=== PATIENT | male | born 1985 | race Two or more races ===

== ENCOUNTER 2019-11-07 16:06 | Emergency (ER) | payer OTHER ==
[2019-11-07] MEDS ORDERED: Bacitracin Oint 1 GM U/D Packet TOP ONE (16:21)
[2019-11-07] MEDS ORDERED: Lidocaine 1% PF 2 ML SDV INJECT ONE (16:21)
[2019-11-07] MEDS ORDERED: Diphtheria,Pertussis(Acell),Tetanus Vaccine 0.5 ML Syringe IM ONE (16:21)
--- NOTE | 2019-11-07 16:21 | EDM.PDOC ---
ED HPI GENERAL MEDICAL PROBLEM - General Chief Complaint: Upper Extremity Injury/Pain Stated Complaint: INJURED R HAND WHILE AT WORK Time Seen by Provider: 11/07/19 16:22 Source of Information: Reports: Patient History Limitations: Reports: No Limitations - History of Present Illness INITIAL COMMENTS - FREE TEXT/NARRATIVE: HISTORY AND PHYSICAL: History of present illness: Patient is a 34-year-old male who presents to the emergency room with complaints of right middle finger crush injury. He states while at work is finger got crushed by a piece of equipment and had noticed the tip of his bone sticking out through the laceration. He denies any other extremity involvement. Bleeding is controlled with gentle pressure. Unsure of his last tetanus update Review of systems: As per history of present illness and below otherwise all systems reviewed and negative. Past medical history: As per history of present illness and as reviewed below otherwise noncontributory. Surgical history: As per history of present illness and as reviewed below otherwise noncontributory. Social history: See social history for further information Family history: As per history of present illness and as reviewed below otherwise noncontributory. Physical exam: General: Well-developed and well-nourished 34-year-old male. Alert and oriented. Nontoxic-appearing and in no acute distress. HEENT: Atraumatic, normocephalic, pupils equal and reactive bilaterally, negative for conjunctival pallor or scleral icterus, mucous membranes moist, TMs normal bilaterally, throat clear, neck supple, nontender, trachea midline. No drooling or trismus noted. No meningeal signs. No hot potato voice noted. Lungs: Clear to auscultation, breath sounds equal bilaterally, chest nontender. Heart: S1S2, regular rate and rhythm without overt murmur Abdomen: Soft, nondistended, nontender. Negative for masses or hepatosplenomegaly. Negative for costovertebral tenderness. Skin: 2.5 cm to the anterior aspect of the distal right third digit just below the nailbed, soft tissue swelling, open fracture. Otherwise skin is intact, warm, dry. No lesions or rashes noted. Extremities: Crush injury with open laceration to the right distal third digit. See skin for details. Moves all extremities per self without difficulty or deficits, negative for cords or calf pain. Neurovascular unremarkable. Neuro: Awake, alert, oriented. Cranial nerves II through XII unremarkable. Cerebellum unremarkable. Motor and sensory unremarkable throughout. Exam nonfocal. Notes: 1% lidocaine was used to anesthetize the area. Area was thoroughly cleansed with chlorhexidine and wound wash was used to thoroughly irrigate the site. X- ray shows a distal phalanx with minimal displacement of the affected digit. Usual and customary procedures were followed for suture placement. 4-0 Chromic , #4 interrupted sutures placed without difficulty. Bacitracin nonstick bulky dressing was applied. Consulted Dr Byrne, Hand Surgeon at [facility]. He is aware of the patient and type of injury. He states the patient can call his office on Sunday and he would see him Sunday or Sunday in his office. All findings were shared with the patient. Medication, wound care and supportive care measures were reviewed and discussed. Voices understanding and is agreeable to plan of care. Denies any further questions or concerns at this time. Diagnostics: X-ray Therapeutics: 1% lidocaine, wound care/irrigation Prescription: Tran [place] Impression: Phalanx Fracture Plan: 1. You will need to follow up with Dr Byrne, Hand Surgeon at [facility]. He is aware of your case and would like to see you in his office on Sunday or Sunday. Call his office first thing in the morning to set up your appointment time. 2. Keep the skin, clean and dry. 3. Take the antibiotic as directed. Tylenol and/or ibuprofen as needed for pain management. [place] for moderate to severe pain. This medication may cause drowsiness so do not take it while driving or needing to be functioning outside of the house. 4. Return to the ED as needed and as discussed. Definitive disposition and diagnosis as appropriate pending reevaluation and review of above. Right Middle Finger Pain Score (Numeric/FACES): 5 - Related Data Allergies Allergy/AdvReac Type Severity Reaction Status Date / Time No Known Allergies Allergy Verified 11/07/19 16:27 Home Meds: Home Meds Acetaminophen/HYDROcodone [[place] 325-5 MG] 1 dose PO Q4H PRN #30 tablet [Rx] cephALEXin [Keflex] 500 mg PO TID 7 Days #21 cap 11/07/19 [Rx] Review of Systems - Review of Systems Review Of Systems: Comprehensive ROS is negative, except as noted in HPI. ED EXAM, GENERAL - Physical Exam Exam: See Below (See dictation) Course - Vital Signs Last Recorded V/S: Last Vital Signs Temp 98.4 F 11/07/19 16:27 Pulse 90 11/07/19 16:27 Resp 18 11/07/19 16:27 BP 157/97 H 11/07/19 16:27 Pulse Ox 97 11/07/19 16:27 - Orders/Labs/Meds Orders: Active Orders 24 hr Category Date Time Status Vaccines to be Administered [RC] PER UNIT ROUTINE Care 11/07/19 16:22 Active Meds: Medications Discontinued Medications Generic Name Dose Route Start Last Admin Trade Name Freq PRN Reason Stop Dose Admin Hydrocodone Bitart/Acetaminophen 1 tab 11/07/19 16:39 [place] 325-5 Mg PO 11/07/19 16:40 ONETIME ONE Bacitracin 1 dose 11/07/19 16:21 Bacitracin Oint 1 Gm TOP 11/07/19 16:22 ONETIME ONE Cefazolin Sodium 1 gm 11/07/19 16:39 Ancef IM 11/07/19 16:40 ONETIME ONE Diphtheria/Tetanus/Acell Pertussis 0.5 ml 11/07/19 16:21 Adacel IM 11/07/19 16:22 .ONCE ONE Sterile Water Confirm 11/07/19 17:27 Sterile Water For Injection Administered 11/07/19 17:28 Dose 20 mls @ as directed .ROUTE .STK-MED ONE Lidocaine HCl 4 ml 11/07/19 16:21 Xylocaine-Mpf 1% INJECT 11/07/19 16:22 ONETIME ONE Lidocaine HCl Confirm 11/07/19 16:24 Xylocaine-Mpf 1% Administered 11/07/19 16:25 Dose 5 ml .ROUTE .STK-MED ONE Departure - Departure Time of Disposition: 17:27 Disposition: Home, Self-Care 01 Clinical Impression: Phalanx, distal fracture of finger Qualifiers: Encounter type: initial encounter Finger: middle finger Fracture type: open Fracture alignment: displaced Laterality: right Qualified Code(s): S62.632B - Displaced fracture of distal phalanx of right middle finger, initial encounter for open fracture - Discharge Information Prescriptions: Acetaminophen/HYDROcodone [[place] 325-5 MG] 1 dose PO Q4H PRN #30 tablet PRN Reason: Pain cephALEXin [Keflex] 500 mg PO TID 7 Days #21 cap Instructions: Finger Fracture, Adult, [id number] Referrals: PCP,None [Primary Care Provider] - Forms: ED Department Discharge Additional Instructions: The following information is given to patients seen in the emergency department who are being discharged to home. This information is to outline your options for follow-up care. We provide all patients seen in our emergency department with a follow-up referral. The need for follow-up, as well as the timing and circumstances, are variable depending upon the specifics of your emergency department visit. If you don't have a primary care physician on staff, we will provide you with a referral. We always advise you to contact your personal physician following an emergency department visit to inform them of the circumstance of the visit and for follow-up with them and/or the need for any referrals to a consulting specialist. The emergency department will also refer you to a specialist when appropriate. This referral assures that you have the opportunity for follow-up care with a specialist. All of these measure are taken in an effort to provide you with optimal care, which includes your follow-up. Under all circumstances we always encourage you to contact your private physician who remains a resource for coordinating your care. When calling for follow-up care, please make the office aware that this follow-up is from your recent emergency room visit. If for any reason you are refused follow-up, please contact the [facility] Emergency Department at and asked to speak to the emergency department charge nurse. Dr Byrne [facility]: Hand Surgeon [address] [place] [address] ([address]rd Floor) [facility] [id number] 1. You will need to follow up with Dr Byrne, Hand Surgeon at [facility] in [place]. He is aware of your case and would like to see you in his office on Sunday or Sunday. Call his office first thing Sunday morning to set up your appointment time. 2. Keep the skin, clean and dry. Keep this dressing on. 3. Take the antibiotic as directed. Tylenol and/or ibuprofen as needed for pain management. [place] for moderate to severe pain. This medication may cause drowsiness so do not take it while driving or needing to be functioning outside of the house. 4. Return to the ED as needed and as discussed. Sepsis Event Note - Focused Exam Vital Signs: Vital Signs Temp Pulse Resp BP Pulse Ox 11/07/19 16:27 98.4 F 90 18 157/97 H 97 Date Exam was Performed: 11/07/19 Time Exam was Performed: 17:33 - My Orders Last 24 Hours: My Active Orders 11/07/19 16:22 Vaccines to be Administered [RC] PER UNIT ROUTINE - Assessment/Plan Last 24 Hours: My Active Orders 11/07/19 16:22 Vaccines to be Administered [RC] PER UNIT ROUTINE
[2019-11-07] MEDS ORDERED: Acetaminophen/HYDROcodone 325-5 MG Tab PO ONE (16:39)
[2019-11-07] MEDS ORDERED: ceFAZolin 1 GM Vial IM ONE (16:39)
--- NOTE | 2019-11-07 17:04 | CR ---
Right 3rd finger: 3 views centered to the right 3rd finger were obtained. Comparison: No previous 3rd finger study. Soft tissue injury is seen distally. Fracture is noted within the distal phalanx with minimal displacement. No proximal bony abnormality is seen. Impression: 1. Distal soft tissue injury and fracture as described above within the 3rd finger. Diagnostic code #3 This report was dictated in [place] Standard Time
[2019-11-07] MEDS ORDERED: Water For Injection, Sterile 20 ML ONE (17:27)
== END 2019-11-07 18:35 | disposition home or self-care (01) ==
LOC: MW.ED 16:06
DX: S67.192A Crushing injury of right middle finger, initial encounter (principal); S62.632B Displaced fracture of distal phalanx of right middle finger, initial encounter for open fracture; Z23 Encounter for immunization; W31.9XXA Contact with unspecified machinery, initial encounter; Y92.89 Other specified places as the place of occurrence of the external cause; Y99.0 Civilian activity done for income or pay
CPT/HCPCS: 12001; 73140; 90471; 90715; 96372; 99283; A9270; J0690; J2001